=== PATIENT | male | born 1980 | race Caucasian/White ===

== ENCOUNTER → 2025-03-03 17:24 | Outpatient (REF) | payer OTHER, BC, SELFPAY | LOC: RAD 17:24 | PROVIDERS: ATTENDING PHYSICIAN Psychiatry & Neurology Neurology | DX: M54.50 Low back pain, unspecified (principal) | CPT/HCPCS: 72110 ==

== ENCOUNTER → 2025-03-15 11:13 | Outpatient (REF) | payer OTHER, SELFPAY | LOC: RAD 11:13 | PROVIDERS: ATTENDING PHYSICIAN Radiology Diagnostic Radiology; FAMILY PHYSICIAN Internal Medicine | DX: T85.192D Other mechanical complication of implanted electronic neurostimulator of spinal cord electrode (lead), subsequent encounter (principal) | CPT/HCPCS: 72072 ==

== ENCOUNTER → 2025-03-17 11:10 | Outpatient (REF) | payer OTHER, BC, SELFPAY | LOC: PAVMRI 11:10 | PROVIDERS: ATTENDING PHYSICIAN Psychiatry & Neurology Neurology; FAMILY PHYSICIAN Internal Medicine | DX: M54.16 Radiculopathy, lumbar region (principal) | CPT/HCPCS: 72148 ==

== ENCOUNTER → 2025-05-30 09:14 | Outpatient (REF) | payer BC, SELFPAY | LOC: PAVMRI 09:14 | PROVIDERS: ATTENDING PHYSICIAN Surgery; FAMILY PHYSICIAN Internal Medicine | DX: K60.30 Anal fistula, unspecified (principal) | CPT/HCPCS: 72197; A9575 ==

== ENCOUNTER 2025-08-20 06:18 | Day surgery (SDC) | payer BC, SELFPAY | END 2025-08-20 09:58 | disposition home or self-care (01) | LOC: GI 06:18 | PROVIDERS: ATTENDING PHYSICIAN Surgery | DX: K52.9 Noninfective gastroenteritis and colitis, unspecified (principal); K57.30 Diverticulosis of large intestine without perforation or abscess without bleeding | CPT/HCPCS: 45380; 88305 ==